=== PATIENT | male | born 1980 | race Hispanic/Latino ===

== ENCOUNTER 2018-06-07 09:00 | Inpatient (IN) | payer MEDICAID ==
[~2018-06-07] VITALS: Ht 160 cm; Wt 72.3 kg
[2018-06-07 00:41] VITALS: BP 112/79
[2018-06-07] MEDS ORDERED: MORPHINE SULFATE 4 MG/1ML SYG ONE ×2 (09:24→10:57)
[2018-06-07] MEDS ORDERED: ONDANSETRON HCL 4 MG/2 ML VIAL ONE (09:24)
[2018-06-07] MEDS ORDERED: IOHEXOL 350 MG/ML 100ML INFUS..BTL IV ONE (09:26)
[2018-06-07 09:58] LABS: BASOPHILS % (AUTO) 0.2 % (0.0-5.0); EOSINOPHILS % (AUTO) 0.4 % (0.0-8.0); HEMATOCRIT 38.5 % (42-54); LYMPHOCYTES % (AUTO) 14.3 % (21.0-51.0); MEAN CORPUSCULAR HEMOGLOBIN 21.3 pg (27.0-33.0); MEAN CORPUSCULAR HGB CONC 32.2 g/dL (32.0-36.0); MEAN CORPUSCULAR VOLUME 66.2 fL (79-99); MONOCYTES % (AUTO) 7.6 % (3.0-13.0); NEUTROPHILS % (AUTO) 77.5 % (40.0-77.0); NUCLEATED RED BLOOD CELLS 0.2 % (0.0-0.19); PLATELET COUNT (AUTO) 238 K/uL (130-400); RED BLOOD CELL COUNT(AUTO) 5.81 MIL/uL (4.50-6.20); RED CELL DISTRIBUTION WIDTH 17.2 % (11.0-15.5); WHITE BLOOD COUNT (AUTO) 9.4 K/uL (4.8-10.8)
[2018-06-07 10:04] LABS: CREATININE 0.8 mg/dL (0.5-1.5); POTASSIUM 5.3 mmol/L (3.5-5.1)
[2018-06-07 10:09] LABS: ALBUMIN 3.9 g/dL (3.5-5.0); BILIRUBIN,TOTAL 1.4 mg/dL (0.2-1.0)
[2018-06-07 10:24] LABS: APPEARANCE,URINE Clear (CLEAR); BILIRUBIN,URINE Negative (NEGATIVE); COLOR,URINE Dark Yellow (YELLOW); GLUCOSE, URINE (UA) Negative (NEGATIVE); KETONES,URINE Negative (NEGATIVE); LEUKOCYTE ESTERASE ,URINE Trace (NEGATIVE); NITRATE,URINE Negative (NEGATIVE); OCCULT BLOOD,URINE Negative (NEGATIVE); PROTEIN,URINE Negative (NEGATIVE)
[2018-06-07] MEDS ORDERED: FOSPHENYTOIN SODIUM 500 MG/10ML VIAL IJ ONE (10:24)
[2018-06-07] MEDS ORDERED: SODIUM CHLORIDE 0.9% 50 ML IV ONE (10:25)
[2018-06-07 10:33] LABS: AMPHET/METH SCREEN,URINE NEGATIVE (NEGATIVE); BARBITURATE SCREEN, URINE NEGATIVE (NEGATIVE); BENZODIAZEPINES SCREEN,URINE NEGATIVE (NEGATIVE); CANNABINOID SCREEN,URINE NEGATIVE (NEGATIVE); COCAINE SCREEN,URINE NEGATIVE (NEGATIVE); OPIATE SCREEN,URINE POSITIVE (NEGATIVE); PHENCYCLIDINE SCREEN,URINE NEGATIVE (NEGATIVE)
[2018-06-07 10:37] LABS: BACTERIA,URINE Rare /HPF (None Seen); MUCUS,URINE Rare LPF (None Seen); RBC,URINE None Seen /HPF (0-1); SQUAMOUS EPITHELIAL CELL,UR Rare /HPF (0-2); WBC,URINE 0-1 /HPF (0-1)
[2018-06-07] MEDS ORDERED: DiphenhydrAMINE HCL 50 MG/ML VIAL ONE (10:46)
[2018-06-07] MEDS ORDERED: FAMOTIDINE/PF 20 MG/2 ML VIAL IV ONE (10:46)
[2018-06-07] MEDS ORDERED: KETOROLAC TROMETHAMINE 30MG/ML ONE (10:56)
[2018-06-07] MEDS ORDERED: SODIUM CHLORIDE 0.9% 1000ML 1,000 ML IV ONE (15:30)
[2018-06-07] MEDS ORDERED: CALCIUM GLUCONATE 1 GM/10 ML VIAL IV SCH (15:45)
[2018-06-07] MEDS: SODIUM CHLORIDE 0.9% 1000ML 1,000 ML IV SCH (16:00)
[2018-06-07 20:55] VITALS: BP 116/85
[2018-06-07] MEDS: ONDANSETRON HCL 4 MG/2 ML VIAL IVP PRN (21:18)
[2018-06-07] MEDS: MORPHINE SULFATE 4 MG/1ML SYG IVP PRN (21:25)
[2018-06-07 21:43] VITALS: BP 122/84
[2018-06-07 22:43] VITALS: BP 113/86
[2018-06-07 23:45] VITALS: BP 118/84
[2018-06-08] VITALS (14 sets, daily range): BP systolic 102–135; BP diastolic 69–91
[2018-06-08] MEDS ORDERED: DIVA500T52 PO (00:29)
[2018-06-08] MEDS ORDERED: ALPR-409 PO (00:29)
[2018-06-08] MEDS ORDERED: HYDR-3422 PO (00:29)
[2018-06-08] MEDS: SODIUM CHLORIDE 0.9% 1000ML 1,000 ML IV SCH (03:43)
[2018-06-08 04:54] LABS: ALBUMIN 3.4 g/dL (3.5-5.0); BILIRUBIN,TOTAL 1.3 mg/dL (0.2-1.0); CREATININE 0.9 mg/dL (0.5-1.5); POTASSIUM 3.6 mmol/L (3.5-5.1); TOTAL PROTEIN, SERUM 6.7 g/dL (6.0-8.3)
[2018-06-08] MEDS: ONDANSETRON HCL 4 MG/2 ML VIAL IVP PRN ×2 (05:23→19:53)
[2018-06-08] MEDS: MORPHINE SULFATE 4 MG/1ML SYG IVP PRN ×2 (05:32→19:54)
[2018-06-08] MEDS ORDERED: PNEUMOCOCCAL VACCINE POLYVALENT 0.5 ML/VIAL [PPV] IM ONE (09:00)
[2018-06-08] MEDS: DIVALPROEX SODIUM 250 MG TABLET.DR PO SCH (19:55)
[2018-06-09 00:19] VITALS: BP 119/83
[2018-06-09 04:00] VITALS: BP 105/75
[2018-06-09] MEDS ORDERED: PNEUMOCOCCAL VACCINE POLYVALENT 0.5 ML/VIAL [PPV] ONE (06:46)
[2018-06-09 07:30] VITALS: BP 110/66
[2018-06-09 11:00] VITALS: BP 111/62
[2018-06-09] MEDS: DIVALPROEX SODIUM 250 MG TABLET.DR PO SCH ×2 (12:31→20:13)
[2018-06-09] MEDS: MORPHINE SULFATE 4 MG/1ML SYG IVP PRN (12:34)
[2018-06-09] MEDS ORDERED: TRAMADOL HCL 50 MG TABLET PO SCH (13:00)
[2018-06-09] MEDS: FAMOTIDINE 20MG TAB 20 MG TAB PO SCH (13:00)
[2018-06-09 16:00] VITALS: BP 108/61
[2018-06-09 20:08] VITALS: BP 109/64
[2018-06-09] MEDS: TRAMADOL HCL 50 MG TABLET PO PRN (20:16)
[2018-06-10 00:16] VITALS: BP 103/67
[2018-06-10] MEDS: MORPHINE SULFATE 4 MG/1ML SYG IVP PRN ×2 (00:24→22:25)
[2018-06-10 04:12] VITALS: BP 107/68
[2018-06-10 05:07] LABS: POTASSIUM 4.4 mmol/L (3.5-5.1)
[2018-06-10 07:30] VITALS: BP 113/73
[2018-06-10] MEDS: DIVALPROEX SODIUM 250 MG TABLET.DR PO SCH ×2 (09:05→20:31)
[2018-06-10] MEDS: FAMOTIDINE 20MG TAB 20 MG TAB PO SCH (09:05)
[2018-06-10 11:00] VITALS: BP 102/59
[2018-06-10 16:00] VITALS: BP 117/75
[2018-06-10 20:13] VITALS: BP 112/64
[2018-06-10] MEDS: TRAMADOL HCL 50 MG TABLET PO PRN (20:31)
[2018-06-10] MEDS: ONDANSETRON HCL 4 MG/2 ML VIAL IVP PRN (22:25)
[2018-06-11 00:16] VITALS: BP 104/67
[2018-06-11 04:16] VITALS: BP 114/72
[2018-06-11 04:16] LABS: BASOPHILS % (AUTO) 0.3 % (0.0-5.0); EOSINOPHILS % (AUTO) 1.8 % (0.0-8.0); HEMATOCRIT 40.4 % (42-54); LYMPHOCYTES % (AUTO) 31.2 % (21.0-51.0); MEAN CORPUSCULAR HEMOGLOBIN 21.4 pg (27.0-33.0); MEAN CORPUSCULAR HGB CONC 32.2 g/dL (32.0-36.0); MEAN CORPUSCULAR VOLUME 66.4 fL (79-99); MONOCYTES % (AUTO) 9.1 % (3.0-13.0); NEUTROPHILS % (AUTO) 57.6 % (40.0-77.0); NUCLEATED RED BLOOD CELLS 0.3 % (0.0-0.19); PLATELET COUNT (AUTO) 257 K/uL (130-400); RED BLOOD CELL COUNT(AUTO) 6.08 MIL/uL (4.50-6.20); RED CELL DISTRIBUTION WIDTH 17.5 % (11.0-15.5); WHITE BLOOD COUNT (AUTO) 6.5 K/uL (4.8-10.8)
[2018-06-11 04:28] LABS: ALBUMIN 3.5 g/dL (3.5-5.0); BILIRUBIN,TOTAL 0.9 mg/dL (0.2-1.0); MAGNESIUM 1.9 mg/dL (1.80-2.40); TOTAL PROTEIN, SERUM 7.3 g/dL (6.0-8.3)
[2018-06-11 08:00] VITALS: BP 116/47
== END 2018-06-11 09:47 | disposition home or self-care (01) | DRG 53 ==
LOC: EDH 09:00 → EDHIP 13:50 → 4CH 20:33 → 4BH 06-08 17:33
PROVIDERS: ADMIT Student in an Organized Health Care Education/Training Program; ATTEND Student in an Organized Health Care Education/Training Program
PROC: 3E0234Z Introduction of Serum, Toxoid and Vaccine into Muscle, Percutaneous Approach (ICD-10-PCS; principal; 2018-06-09)
DX: G40.909 Epilepsy, unspecified, not intractable, without status epilepticus (principal); M79.18 Myalgia, other site; Z91.19 Patient's noncompliance with other medical treatment and regimen; W11.XXXA Fall on and from ladder, initial encounter; Z23 Encounter for immunization; Y93.89 Activity, other specified; Y92.89 Other specified places as the place of occurrence of the external cause; Y99.8 Other external cause status; Z91.041 Radiographic dye allergy status; Z91.013 Allergy to seafood
CPT/HCPCS: 36415; 70450; 70551; 71045; 71250; 72125; 73030; 74176; 80048; 80053; 80185; 80305; 81001; 82550; 83735; 84100; 84484; 85025; 90732; 93005; 99291; G0008; G0009; G0480; J1200; J1885; J2270; J2405; J3490; J7030; Q2009; Q2038; Q9967